=== PATIENT | female | born 1975 | race African-American/Black ===

== ENCOUNTER 2017-08-25 21:45 | Emergency (ER) | payer OTHER ==
[~2017-08-25] VITALS: Ht 154.9 cm; Wt 67.6 kg
[~2017-08-25 21:45] MED LIST: NORCO 5-325 TA1 EACH PO
[2017-08-25] MEDS ORDERED: AUGMENTIN 875-1 EACH PO (23:07)
[2017-08-25] MEDS ORDERED: HYDROCODONE-AP1 EAC6 PO (23:08)
== END 2017-08-26 00:58 | disposition home or self-care (01) ==
LOC: ER 21:45
DX: S02.81XA Fracture of other specified skull and facial bones, right side, initial encounter for closed fracture (principal); H53.2 Diplopia; Y08.89XA Assault by other specified means, initial encounter; Y93.89 Activity, other specified; Y92.89 Other specified places as the place of occurrence of the external cause; Y99.8 Other external cause status

== ENCOUNTER → 2020-03-02 | Outpatient (CLI) | payer BC ==
[~2020-03-02] MED LIST changes: +AUGMENTIN 875-1 EACH PO; +HYDROCODONE-AP1 EAC6 PO
== END ==
LOC: ULTRA 14:15
PROVIDERS: ATTEND Nurse Practitioner
DX: M79.89 Other specified soft tissue disorders (principal)